=== PATIENT | female | born 1960 | race Caucasian/White ===

== ENCOUNTER 2018-11-18 11:03 | Inpatient (IN) | payer BC, OTHER | END 2018-11-19 14:09 | disposition home or self-care (01) | LOC: ED 11:03 → MU 11-19 14:09 → ED 11:03 → MU 14:45 ==

== ENCOUNTER 2019-01-30 15:39 | Emergency (ER) | payer BC ==
[~2019-01-30] VITALS: Ht 165.1 cm; Wt 75.7 kg
[~2019-01-30 15:39] MED LIST: CIPRO250 MG PO; COL100 PO; COLACE100 MG PO; DUCODYL5 MG PO; FLA500 PO; LAC PO; LACTULOSE10 GM/152 PO; LEVAQUIN750 MG PO; LEVOFLOXACIN500 M1 PO; MOTRIN100 MG/5 M PO; NIC7 TD; NOR10T PO; NORCO1 TA2 PO
[2019-01-30 15:58] VITALS: Ht 165.1 cm; Wt 75.7 kg
[2019-01-30 17:05] LABS: BASOPHIL % 0.5 % (0-2); PLATELET COUNT 329 x10^3mcL (130-400); RED CELL DISTRIBUTION WIDTH 13.9 % (11.5-14.5)
[2019-01-30 17:11] LABS: CALCIUM 9.5 mg/dL (8.5-10.1); CARBON DIOXIDE 28.1 mmol/L (21-32); CREATININE SERUM 1.1 mg/dL (0.6-1.0); POTASSIUM SERUM 3.4 mmol/L (3.5-5.1)
[2019-01-30 17:16] LABS: ALBUMIN 3.3 g/dL (3.4-5.0); BILIRUBIN TOTAL 0.3 mg/dL (0.20-1.00)
[2019-01-30 20:40] VITALS: BP 126/70
== END 2019-01-30 20:40 | disposition home or self-care (01) ==
LOC: ED 15:39
PROVIDERS: Emergency Medicine
DX: K57.32 Diverticulitis of large intestine without perforation or abscess without bleeding (principal); N23 Unspecified renal colic; M25.512 Pain in left shoulder; G89.29 Other chronic pain; Z88.5 Allergy status to narcotic agent
CPT/HCPCS: J1885; J2270; J2405; J2543; J3490; J7030; Q0092